=== PATIENT | female | born 1990 | race African-American/Black ===

== ENCOUNTER 2016-10-21 21:16 | Emergency (ER) | payer OTHER ==
[~2016-10-21] VITALS: Ht 152.4 cm; Wt 55.8 kg
[~2016-10-21 21:16] MED LIST: NO HOME MEDS; OXYC-57 PO
[2016-10-21 21:20] VITALS: BP 118/67; PULSE 103; TEMP 36.5; O2SAT 97; Ht 152.4 cm; Wt 55.8 kg
--- NOTE | 2016-10-21 21:35 | EMERGENCY ROOM VISIT NOTE ---
ED Visit Note First contact with patient: 21:28 CHIEF COMPLAINT: Ring stuck on finger HISTORY OF PRESENT ILLNESS: This 25-year-old female patient presented to the emergency department ambulatory because she has had a ring stuck on her right fourth finger for approximately 2 weeks. The patient states that is a ring friend gave her several years ago. She states it use to fit her but now seems to small and she has not been able to get it off. She states she has tried lubrication, floss, warm water and has not been able to get the ring off. She presents requesting to have the ring removed. REVIEW OF SYSTEMS: A 6 system review of systems was completed with positives and pertinent negatives in the HPI. ALLERGIES: No known drug allergies MEDICATIONS: None PMH: None SOCIAL HISTORY: The patient lives locally. She is a smoker PHYSICAL EXAM: Vital Signs: Reviewed Nurse's notes, vital signs stable. GENERAL : This is a 25-year-old female, in no acute distress, but appears to be in pain , well-developed, well-nourished. MUSCULOSKELETAL: There is no deformity of the right fourth finger. There is a ring on the finger. After the ring was removed , I did reevaluate. There is some tissue breakdown from the ring. Distally, capillary refill is less than 2 seconds. She has good sensation and good color at the tip of the finger. She will be placed on Keflex given the tissue breakdown. EMERGENCY DEPARTMENT COURSE: I examined the patient. The emergency department recreation technician remove the ring from the finger with the ring cutter. The patient does have some mild tissue breakdown where the ring had been stuck. She will be placed on Keflex to help prevent infection. She has good neurovascular status in the finger. The patient was discharged home in good condition. Problem List Medical Problems: (1) Previous section Status: Resolved Current/Historical Medications Scheduled Cephalexin Monohydrate (Keflex), 500 MG PO TID Allergies Coded Allergies: No Known Allergies (Unverified , 10/21/16) Vital Signs Date Time Temp Pulse Resp B/P Pulse Ox O2 Delivery O2 Flow Rate FiO2 10/21/16 21:20 36.5 103 16 118/67 97 Room Air Departure Information Impression Primary Impression: Tight ring on finger Dispostion Home / Self-Care Condition GOOD Prescriptions Cephalexin Monohydrate (Keflex) 500 Mg Cap 500 MG PO TID for 7 Days, #21 CAP Prov: Gauri Gregory PA-C 10/21/16 Referrals (PCP) Patient Instructions My [facility] Additional Instructions Keflex every 8 hours for 7 days to help prevent infection Keep the area clean and dry and apply an antibiotic ointment and dressing during the day and allowed to dry to the air at night Return with any worsening redness, swelling, warmth, drainage of pus
[2016-10-21] MEDS ORDERED: CEPH500C PO (21:43)
== END 2016-10-21 21:47 | disposition home or self-care (01) ==
LOC: C.EDB 21:18 → C.EDD 21:47
DX: S60.454A Superficial foreign body of right ring finger, initial encounter (principal); X58.XXXA Exposure to other specified factors, initial encounter

== ENCOUNTER 2017-05-05 09:56 | Emergency (ER) | payer OTHER ==
[~2017-05-05] VITALS: Ht 152.4 cm; Wt 55.3 kg
[2017-05-05 10:04] VITALS: TEMP 36.7; Ht 152.4 cm; Wt 55.3 kg
--- NOTE | 2017-05-05 10:32 | DIAGNOSTIC IMAGING REPORT ---
RIGHT SHOULDER MIN 2 VIEWS ROUTINE CLINICAL HISTORY: Right shoulder pain COMPARISON: None. DISCUSSION: No fractures or dislocations are visualized. There are no visible periarticular calcifications. IMPRESSION: Unremarkable conventional radiographic evaluation of the right shoulder. Electronically signed by: Corey Moses M.D. 05/05/2017 10:30 AM Dictated Date/Time: 05/05/2017 10:30 AM
--- NOTE | 2017-05-05 11:25 | DIAGNOSTIC IMAGING REPORT ---
RIGHT RIBS UNILATERAL WITH PA CHEST CLINICAL HISTORY: Right rib and shoulder pain. No recent trauma. COMPARISON STUDY: No previous studies for comparison. FINDINGS: Incidental note is made of small bilateral cervical ribs. Lungs are clear. No pneumothorax or pleural effusion is present. Cardiomediastinal silhouette is normal. Pulmonary vascularity is normal. No right rib fractures are identified. IMPRESSION: 1. No pneumothorax. No acute right rib fractures identified. 2. Small bilateral cervical ribs. Electronically signed by: Benjy Mayfield M.D. 05/05/2017 11:23 AM Dictated Date/Time: 05/05/2017 11:21 AM
[2017-05-05 12:05] VITALS: BP 97/73; PULSE 68; O2SAT 99
--- NOTE | 2017-05-06 07:15 | EMERGENCY ROOM VISIT NOTE ---
ED Visit Note First contact with patient: 10:05 Chief Complaint: My right shoulder and clavicle hurts. History of Present Illness: Ms. Avila is a 26-year-old female who ambulates into the ED complaining of anterior shoulder pain over the clavicle and humeral head. Patient reports approximately 1.5 hours ago on of her sons jumped on her shoulder while she was sleeping. She reports initially she was having rib pain just inferior to the clavicle but then the pain seemed to radiate superiorly and now she is having pain over the clavicle and anterior humeral head. She describes the pain as a constant deep achy sensation that becomes sharp with movements. She rates her discomfort 7/10. Her pain is nonradiating. Her pain worsens with palpation, shoulder flexion and abduction. She has not identified any alleviating factors related to the pain. She has not taken any medications for pain prior to arrival at the hospital. She denies any associated symptoms including neck pain, chest pain, shortness of breath, difficulty breathing, previous shoulder injury/surgeries, right upper extremity weakness/numbness/tingling. Review of Systems: As noted above in history of present illness. 55 body systems were reviewed and found to be negative as noted above. Past Medical History: Status post wisdom teeth extraction and section 3. Current Medications: Patient denies. Allergies to Medications: Patient denies. Social History: Patient is currently employed; she feels safe in her home environment; she denies tobacco and alcohol use. Physical Examination: Vital Signs: Date Time Temp Pulse Resp B/P (MAP) Pulse Ox O2 Delivery O2 Flow Rate FiO2 05/05/17 12:05 68 18 97/73 99 05/05/17 11:38 68 18 97/73 99 Room Air 05/05/17 10:04 36.7 78 16 107/66 100 Room Air GENERAL: 26-year-old female in mild distress due to pain, nontoxic-appearing, afebrile and hemodynamically stable. NEUROLOGICAL: Awake, alert and oriented to person, place and time. Answering questions appropriately and following commands. Normal gait. Good hand eye coordination. SKIN: Warm, dry and pink. Chest: Just inferior to the mid clavicle patient has a small superficial abrasion. HEENT: Atraumatic and normocephalic. THORAX: Lungs sounds are clear to auscultation and equal bilaterally with symmetrical chest wall. No wheezing, rales or rhonchi. Mild tenderness over the ribs inferior to the clavicle without bony deformity or crepitus. There is no local swelling or erythema. No subcutaneous air. RIGHT UPPER EXTREMITY: No gross bony deformity. Mild tenderness over the mid clavicle without bony deformity or crepitus. Moderate tenderness over the humeral head without bony deformity or crepitus. Full range of motion in all movements but it is noted with abduction and extension of the shoulder she has increase in pain. Minimal tenderness over the top of the shoulder and the trapezius muscle without muscle spasm. No tenderness over the shaft of the humerus, elbow or forearm. With the shoulder stabilize she has 5/5 muscle strength in flexion and extension of the elbow, pronation and supination of the forearm, flexion, extension and radial and ulnar deviation of the wrist and office specialist strength. Throughout the hand the skin was warm and pink and capillary refill is brisk. She is able to distinguish light sensations to all dermatomes. ED Course: Patient is assessed as noted above. Patient's medication list was reviewed. Right shoulder x-rays: Were read by myself and the radiologist and shows no acute fractures or dislocations. Right rib x-ray series: Were read by myself and the radiologist showing no acute infiltrates, effusions or pneumothorax. Normal heart silhouette and bony anatomy without any signs of obvious rib fractures. Patient's arm was placed in a sling. Patient was educated about today's findings and instructed on her treatment plan ; she verbalizes understanding and agreement with this plan. Clinical Impression: Right anterior shoulder pain. Right rib pain. Disposition: Patient discharged home in stable condition; prior to departure she was reassessed and subjectively reported she was feeling better. Plan: For measures were discussed with the patient including rest, ice, sling use and alternating ibuprofen and acetaminophen as needed for pain. Patient was encouraged follow-up with outbound sales specialist if no better in 7- 10 days. Patient was encouraged return ED for worsening pain, shortness of breath, arm weakness/numbness/tingling or any new/concerning symptoms.
== END 2017-05-05 12:05 | disposition home or self-care (01) ==
LOC: C.EDB 09:58 → C.EDA 12:05
DX: M25.511 Pain in right shoulder (principal); R07.81 Pleurodynia